=== PATIENT | female | born 1995 | race Caucasian/White ===

== ENCOUNTER 2023-12-07 05:44 | Inpatient (IN) | payer BC ==
[2023-12-07 07:51] VITALS: BMI 25.0
[2023-12-07] MEDS ORDERED: hydrALAZINE 20 MG/ML VIAL SLOW IVP PRN ×2 (08:19→14:42)
[2023-12-07] MEDS ORDERED: HYDROcodone/Acetaminophen 5/325 mg Tablet PO PRN ×4 (08:19→14:42)
[2023-12-07] MEDS ORDERED: Promethazine HCl 25 MG/ML VIAL IM PRN (08:19)
[2023-12-07] MEDS ORDERED: Methylergonovine 0.2 MG/ML VIAL IM PRN ×2 (08:19→14:42)
[2023-12-07] MEDS ORDERED: Ondansetron PF 4 MG/2 ML Vial IVP PRN (08:19)
[2023-12-07] MEDS ORDERED: Lidocaine 1% (PF) 30 ML VIAL SC PRN (08:19)
[2023-12-07] MEDS ORDERED: fentaNYL 50 mcg/mL 1 mL Vial SLOW IVP PRN (08:19)
[2023-12-07] MEDS ORDERED: Tranexamic Acid 1,000 MG/10 ML VIAL IVP PRN (08:19)
[2023-12-07] MEDS ORDERED: Misoprostol 200 MCG TAB PR PRN (08:19)
[2023-12-07] MEDS ORDERED: Ibuprofen 800 MG TAB PO PRN (08:19)
[2023-12-07] MEDS ORDERED: Lactated Ringer's 1,000 ML IV PRN (08:19)
[2023-12-07] MEDS ORDERED: Oxytocin 30 units/NS 500 ML 500 ML IV SCH ×2 (08:30→14:42)
[2023-12-07 08:59] LABS: Hematocrit 38.8 % (34.9-44.5); Hemoglobin 13.6 g/dL (12.0-15.5); Mean Corpuscular HGB CONC 35.1 g/dL (32.0-36.0); Mean Corpuscular Hemoglobin 31.7 pg (27.0-33.0); Mean Corpuscular Volume 90.4 fL (81.6-98.3); Mean Platelet Volume 10.6 fL (7.4-10.4); Platelet Count 278 10x3/uL (150-450); RBC Distribution Width 12.9 % (11.5-14.5); Red Blood Cell (RBC) Count 4.29 10x6/uL (3.90-5.03); White Blood Cell (WBC) Count 13.4 10x3/uL (3.5-10.5)
[2023-12-07 09:28] LABS: HBsAg Index 0.22 S/CO (0-0.99); Hep B Surf Ag - L&D Non-Reactive S/CO (NonReactive)
[2023-12-07 09:29] LABS: Syphilis Antibody Nonreactive (Nonreactive); Syphilis Antibody Index 0.04 S/CO (<1.00 Non-Reactive)
[2023-12-07] MEDS ORDERED: Bisacodyl 10 MG SUPP PR PRN (14:42)
[2023-12-07] MEDS ORDERED: Misoprostol 200 MCG TAB VAG PRN (14:42)
[2023-12-07] MEDS ORDERED: Milk Of Magnesia 30 ML UDCUP PO PRN (14:42)
[2023-12-07] MEDS: Ibuprofen 800 MG TAB PO SCH (16:46)
[2023-12-07] MEDS: Benzocaine-Menthol 82.5 ML CAN TOP PRN (16:46)
[2023-12-07] MEDS: Boostrix 0.5 ML (Tdap) VIAL (>/=7 yrs of age) IM ONE (17:14)
[2023-12-07] MEDS: Ferrous Sulfate 325 MG TAB PO SCH (17:14)
[2023-12-07] MEDS: Docusate 100 MG CAP PO SCH (22:48)
[2023-12-08] MEDS: Prenatal Vitamin 1 TAB PO SCH (08:47)
[2023-12-08] MEDS: Ibuprofen 800 MG TAB PO SCH (08:47)
[2023-12-09 08:13] VITALS: BP 115/72; TEMP 98.1
== END 2023-12-09 14:04 | disposition home or self-care (01) | DRG 807 ==
LOC: CSHERS 05:44 → CSHLD/OP 05:45 → CSHLD 09:03 → CSHPED 15:25
PROVIDERS: ADMIT Obstetrics & Gynecology; ATTEND Obstetrics & Gynecology
PROC: 10E0XZZ Delivery of Products of Conception, External Approach (ICD-10-PCS; principal; 2023-12-07)
PROC: 0KQM0ZZ Repair Perineum Muscle, Open Approach (ICD-10-PCS; 2023-12-07)
PROC: 0UQMXZZ Repair Vulva, External Approach (ICD-10-PCS; 2023-12-07)
DX: O42.02 Full-term premature rupture of membranes, onset of labor within 24 hours of rupture (principal); Z37.0 Single live birth; Z3A.39 39 weeks gestation of pregnancy; O70.1 Second degree perineal laceration during delivery; Z79.899 Other long term (current) drug therapy
CPT/HCPCS: 36415; 85027; 86780; 86850; 86900; 86901; 87340; 99285